=== PATIENT | female | born 1985 | race Caucasian/White ===

== ENCOUNTER 2019-01-15 19:25 | Observation (INO) ==
[2019-01-15] MEDS ORDERED: Ipratropium/Albuterol Neb 3 ML IH ONE (19:27)
[2019-01-15] MEDS ORDERED: Albuterol 2.5 MG/3 ML NEBULIZER IH ONE (19:27)
[2019-01-15] MEDS ORDERED: 0.9 % Sodium Chloride 1,000 ML IVC ONE ×2 (19:27→21:42)
--- NOTE | 2019-01-15 19:27 | Emergency Department Note ---
Disposition Clinical Impression: Viral infection, Upper respiratory infection, Asthma exacerbation Disposition: Admitted As Inpatient Condition: Good Referrals: Janak Youssef, MAGAZINE SUPERVISOR [Primary Care Provider] - Forms: ED Satisfaction Letter Time of Disposition: 22:25 URI/Sore Throat HPI - General Chief Complaint: ED Upper Respiratory Infection Stated Complaint: COUGH Time Seen by Provider: 01/15/19 19:26 Source: patient Mode of arrival: ambulatory Limitations: no limitations Nursing Notes Reviewed: Yes Vital Signs Reviewed: Yes - History of Present Illness HPI Narrative: 31-year-old female who presents today from urgent care with shortness of breath. She has been treated on there for about 3 weeks according to the urgent care physician on back with steroids and azithromycin and breathing treatments. She is a known asthmatic. She did not getting any better infected issues or tachypnea can a little worse and so he wanted her to come appear to be further evaluated. He is concerned that she may have a blood clot. She has never had a blood clot before. She does have a history of asthma. - Related Data Home Medications Medication Instructions Recorded Confirmed FLUoxetine HCl [PROzac] 60 mg PO DAILY 02/26/16 01/15/19 Topiramate [Topamax] 50 mg PO BID 09/13/17 01/15/19 Hydrochlorothiazide [Microzide] 12.5 mg PO DAILY 06/30/18 01/15/19 Albuterol Neb [Proventil Neb] 2.5 mg IH Q4HR 12/19/18 01/15/19 Previous Rx's Medication Instructions Recorded Albuterol Sulfate [Ventolin Hfa] 1 - 2 spray IH Q4H PRN #1 08/30/18 hfa.aer.ad Dicyclomine [Bentyl] 10 mg PO QID PRN #15 capsule 12/04/18 Montelukast [Singulair] 10 mg PO DAILY #30 tablet 01/08/19 Allergies Allergy/AdvReac Type Severity Reaction Status Date / Time Amoxicillin Allergy Difficulty Verified 01/15/19 18:32 Breathing Penicillins Allergy Difficulty Verified 01/15/19 18:32 Breathing all cillins Allergy Difficulty Uncoded 01/15/19 18:32 Breathing Review of Systems: All other systems are negative except as noted/marked Chart generated with voice recognition software Nursing notes reviewed Old records reviewed URI PMH - Past Medical History Medical history: Reports: asthma, hypertension Surgical history: Reports: cholecystectomy Psychiatric history: Reports: anxiety, depression IRON CASTER history: Reports: bilateral tubal ligation Family history: Reports: non-contributory - Social History Smoking Status: Current every day smoker Alcohol use: Reports: none Drug use: Reports: none Physical Exam - General Limitations: no limitations General appearance: alert, anxious, in distress, obese - Head Head exam: atraumatic, normocephalic, normal inspection - Eye Eye exam: Present: normal appearance, PERRL, EOMI - ENT ENT exam: normal exam, normal oropharynx, mucous membranes moist - Neck Neck exam: Present: normal inspection, full ROM, trachea midline - Chest Chest inspection: Present: normal inspection, symmetric chest wall rise. Absent: tenderness, abscess - Respiratory Respiratory exam: Present: normal lung sounds bilaterally, respiratory distress, wheezes, accessory muscle use - Cardiovascular Cardiovascular exam: Present: normal rhythm, tachycardia, normal heart sounds - Abdominal Exam Abdominal exam: Present: soft, Non-Tender, normal bowel sounds - Extremities Exam Extremities exam: Present: normal inspection, full ROM. Absent: tenderness, pedal edema - Back Exam Back exam: Present: normal inspection, full ROM. Absent: tenderness - Neurological Exam Neurological exam: Present: alert, oriented X3, CN II-XII intact - Psychiatric Psychiatric exam: Present: normal affect, normal mood - Skin Skin exam: Present: warm, dry, intact, normal color Course Vital Signs Temperature 97.5 F L 01/15/19 19:26 Pulse Rate 117 01/15/19 19:26 Respiratory Rate 18 01/15/19 19:26 Blood Pressure 134/75 01/15/19 19:26 O2 Sat by Pulse Oximetry 97 01/15/19 19:26 Temperature 97.5 F L 01/15/19 19:26 Pulse Rate 104 01/15/19 22:04 Respiratory Rate 16 01/15/19 22:04 Blood Pressure 122/60 01/15/19 22:04 O2 Sat by Pulse Oximetry 96 01/15/19 22:04 Oxygen Delivery Oxygen Delivery Nasal Cannula Upper Respiratory Infection - MDM Narrative Medical decision making narrative: 33-year-old female who presents today your symptoms or shortness of breath cough congestion for an ongoing for 3 weeks. She does appear today to rule out a blood clot. CT does not show any evidence of any large blood clots. Patient continues to have a copious amount of sinus drainage and states that on reevaluation that she feels that her throat closing off the last 2 weeks and no one's done a strep test on her. We did get a strep test after she mentioned that to me. She did not mention to me on arrival. Her wheezing has improved after the DuoNeb she remains tachycardic and a sat of 94% on room air. I do think this is probably an asthmatic/upper viral respiratory tract tract infec tion. I do think she would probably benefit from overnight stay and I will discuss this with her. I spoke with Dr. Fung who agreed to accept the patient overnight for observation. Patient's comfortable with staying. We started on some Levaquin as she has bounced that the azithromycin as an outpatient and is allergic to penicillin. - Medical Records Medical records reviewed: Yes I reviewed the patient's medical records. - Lab Data Lab results reviewed: Yes I reviewed the patient's lab results. Result diagrams: 01/15/19 19:58 01/15/19 19:58 Lab Results 01/15/19 01/15/19 01/15/19 Range/Units 19:58 19:58 19:58 WBC 21.7 H (4.3-11.1) K/mcL RBC 4.34 (3.82-4.97) M/mcL Hgb 12.6 (11.5-15.4) g/dL Hct 38.5 (35.3-44.9) % MCV 88.7 (83.0-100.0) fL MCH 29.0 (28.0-33.3) pg MCHC 32.7 (31.6-35.5) g/dL RDW 13.0 (11.5-14.5) % Plt Count 300 (140-400) K/mcL MPV 10.4 (9.4-12.4) fL Immature Gran % 1.0 (0-4) % Seg Neutrophils % 68.4 % Lymphocytes % 21.9 % Monocytes % 6.3 % Eosinophils % 1.9 % Basophils % 0.5 % Neutrophils # 14.8 H (1.6-8.9) K/mcL Lymphocytes # 4.8 H (0.6-4.6) K/mcL Monocytes # 1.4 H (0.0-1.3) K/mcL Eosinophils # 0.4 (0.0-0.6) K/mcL Basophils # 0.1 (0.0-0.2) K/mcL PT 11.6 (9.4-12.1) Seconds INR 1.0 APTT 32.4 (26.0-36.0) Seconds Sodium 133 L (136-145) mEq/L Potassium 3.9 (3.5-5.1) mEq/L Chloride 99 (98-107) mEq/L Carbon Dioxide 24 (23-29) mEq/L BUN 13 (6-20) mg/dL Creatinine 0.59 L (0.60-1.20) mg/dL Est GFR ( Amer) > 60 (> 60) Est GFR (Non-Af Amer) > 60 (> 60) BUN/Creatinine Ratio 22 (6-26) Glucose 128 H (70-105) mg/dL Calculated Osmolality 278 L (280-300) Calcium 9.1 (8.6-10.3) mg/dL Magnesium 1.9 (1.6-2.6) mg/dL - Radiology Data Radiology results reviewed: Yes I reviewed the patient's radiology results. EXAMINATION: CTA OF THE CHEST 01/15/2019 9:08 pm TECHNIQUE: CTA of the chest was performed after the administration of intravenous contrast. Multiplanar reformatted images are provided for review. MIP images are provided for review. Dose modulation, iterative reconstruction, and/or weight based adjustment of the mA/kV was utilized to reduce the radiation dose to as low as reasonably achievable. COMPARISON: Chest x-ray 01/07/2013, 06/29/2013 CT chest HISTORY: ORDERING SYSTEM PROVIDED HISTORY: sob, tachycardia r/o pe 75 ml of ISOVUE 370 Shortness of breath, tachycardia. Acute symptoms. Initial study. FINDINGS: Pulmonary Arteries: Motion artifact degrades some of the images. No central or lobar pulmonary emboli are seen. Many of the segmental and subsegmental pulmonary artery supplying the lower lobes are obscured by motion artifact. The central pulmonary arteries are normal in caliber and course. Mediastinum: No evidence of mediastinal lymphadenopathy. The heart and pericardium demonstrate no acute abnormality. There is no acute abnormality of the thoracic aorta. Lungs/pleura: The central airways are patent. Minimal bibasilar bandlike opacity is suggestive of atelectasis or scarring. Upper Abdomen: The attenuation of the liver is diffusely decreased compatible with fatty infiltration. Soft Tissues/Bones: No acute or focal bony abnormality. CT/CT angio chest IMPRESSION: The study is limited by motion artifact. No central or lobar pulmonary emboli are identified. Many of the segmental and subsegmental pulmonary arteries particularly of the lung bases, are not evaluated, obscured. D/ / Aylin Marcus Cha, MD / Aylin Marcus Cha, MD Interpreting Provider: Aylin Marcus Cha, MD - EKG Data EKG attestation: Yes I reviewed and interpreted this EKG. EKG results narrative: EKG interpreted by myself as sinus tachycardia at a rate of 111 a QTC of [address] elevation
[2019-01-15] MEDS ORDERED: Isovue-370 500 ML BOTTLE IVP ONE (20:05)
[2019-01-15 20:07] LABS: Basophils # 0.1 K/mcL (0.0-0.2); Basophils % 0.5 %; Eosinophils # 0.4 K/mcL (0.0-0.6); Eosinophils % 1.9 %; Hematocrit 38.5 % (35.3-44.9); Hemoglobin 12.6 g/dL (11.5-15.4); Lymphocytes # 4.8 K/mcL (0.6-4.6); Lymphocytes % 21.9 %; Mean Corpuscular HGB Conc 32.7 g/dL (31.6-35.5); Mean Corpuscular Volume 88.7 fL (83.0-100.0); Mean Platelet Volume 10.4 fL (9.4-12.4); Monocytes # 1.4 K/mcL (0.0-1.3); Monocytes % 6.3 %; Platelet Count 300 K/mcL (140-400); Red Blood Count 4.34 M/mcL (3.82-4.97); Segmented Neutrophils % 68.4 %
[2019-01-15 20:08] LABS: Neutrophils # 14.8 K/mcL (1.6-8.9)
[2019-01-15 20:14] LABS: Prothrombin Time 11.6 Seconds (9.4-12.1)
[2019-01-15 20:17] LABS: Activated Partial Thrombo Time 32.4 Seconds (26.0-36.0)
[2019-01-15 20:25] LABS: BUN/Creatinine Ratio 22 (6-26); Blood Urea Nitrogen 13 mg/dL (6-20); Calcium 9.1 mg/dL (8.6-10.3); Carbon Dioxide 24 mEq/L (23-29); Chloride 99 mEq/L (98-107); Glucose 128 mg/dL (70-105); Magnesium 1.9 mg/dL (1.6-2.6); Osmolality,Calculated 278 (280-300); Potassium 3.9 mEq/L (3.5-5.1); Sodium 133 mEq/L (136-145); eGFR For Non-African Americans > 60 (> 60)
[2019-01-15] MEDS ORDERED: Levofloxacin 750 MG/150 ML 750 MG/150 ML BAG IVPB ONE (21:47)
[2019-01-15] MEDS ORDERED: Ipratropium/Albuterol Neb 3 ML IH PRN (23:12)
[2019-01-15] MEDS ORDERED: Ketorolac 30 MG/ML VIAL IVP PRN (23:12)
[2019-01-15] MEDS ORDERED: Naloxone 0.4 MG/ML INJ IVP PRN (23:12)
[2019-01-15] MEDS ORDERED: Mag Hydrox/Al Hydrox/Simeth 30 ML UDC PO PRN (23:12)
[2019-01-15] MEDS ORDERED: Ondansetron 4 MG/2 ML VIAL IVP PRN (23:12)
[2019-01-15] MEDS ORDERED: MOM Conc 10 ML UD.LIQ PO PRN (23:12)
[2019-01-15] MEDS ORDERED: Acetaminophen 325 MG TABLET PO PRN (23:12)
[2019-01-15] MEDS ORDERED: *HR* HYDROcodone/Acet 5/325 mg TABLET PO PRN (23:12)
[2019-01-15] MEDS ORDERED: Nicotine 21 MG PATCH.TD24 TD SCH (23:15)
[2019-01-15] MEDS: 0.9 % Sodium Chloride 1,000 ML IVC SCH (23:30)
[2019-01-16] MEDS: Albuterol 2.5 MG/3 ML NEBULIZER IH SCH ×4 (00:17→12:56)
[2019-01-16 01:25] LABS: Bilirubin,Urine Negative (Negative); Blood,Urine Trace-intact (Negative); Clarity,Urine Slightly Cloudy (Clear); Color,Urine Yellow (Yellow); Glucose,Urine (UA) 500 mg/dL (Normal); Ketones,Urine 15 mg/dL (Negative); Leukocyte Esterase,Urine Negative (Negative); Nitrite,Urine Negative (Negative); PH,Urine 5.5 pH Units (5.0-8.0); Protein,Urine Negative (Neg-Trace); Urobilinogen,Urine Normal (Normal)
[2019-01-16 01:41] LABS: Bacteria,Urine Few per hpf (None-Few); RBC,Urine 0-3 per hpf (0-3); Squamous Epithelial Cell,Urine Few per lpf (None-Few); WBC,Urine 0-3 per hpf (0-3)
[2019-01-16 07:03] LABS: Basophils # 0.1 K/mcL (0.0-0.2); Basophils % 0.2 %; Hematocrit 37.3 % (35.3-44.9); Hemoglobin 12.2 g/dL (11.5-15.4); Immature Granulocytes % 1.4 % (0-4); Lymphocytes # 1.9 K/mcL (0.6-4.6); Lymphocytes % 8.1 %; Mean Corpuscular HGB Conc 32.7 g/dL (31.6-35.5); Mean Corpuscular Hemoglobin 29.4 pg (28.0-33.3); Mean Corpuscular Volume 89.9 fL (83.0-100.0); Monocytes # 0.6 K/mcL (0.0-1.3); Monocytes % 2.6 %; Neutrophils # 20.2 K/mcL (1.6-8.9); Platelet Count 298 K/mcL (140-400); Red Blood Count 4.15 M/mcL (3.82-4.97); Red Cell Distribution Width 13.1 % (11.5-14.5); Segmented Neutrophils % 87.7 %
[2019-01-16 07:27] LABS: BUN/Creatinine Ratio 23 (6-26); Blood Urea Nitrogen 13 mg/dL (6-20); Calcium 8.8 mg/dL (8.6-10.3); Carbon Dioxide 20 mEq/L (23-29); Chloride 102 mEq/L (98-107); Glucose 235 mg/dL (70-105); Magnesium 2.3 mg/dL (1.6-2.6); Osmolality,Calculated 280 (280-300); Potassium 4.4 mEq/L (3.5-5.1); Sodium 131 mEq/L (136-145); eGFR For Non-African Americans > 60 (> 60)
[2019-01-16] MEDS: 0.9 % Sodium Chloride 1,000 ML IVC SCH (07:56)
[2019-01-16] MEDS ORDERED: Topiramate 25 MG TABLET PO SCH (09:00)
[2019-01-16] MEDS ORDERED: hydroCHLOROthiazide 25 MG TABLET PO SCH (09:00)
[2019-01-16] MEDS ORDERED: FLUoxetine 20 MG CAPSULE PO SCH (09:00)
[2019-01-16 11:46] VITALS: BP 116/77
--- NOTE | 2019-01-16 12:26 | Internal Med History&Physical ---
Date of Encounter: 01/16/19 Time of Encounter: 11:45 Assessment and Plan (1) Upper respiratory infection Current visit: Yes Status: Acute Likely viral. She is clinically improved and feels stable for discharge home. Room air oximetry will be checked on 6 minute walk prior to discharge. She will receive 3 day course of doxycycline and probiotic. Qualifiers: URI type: unspecified URI Qualified Code(s): J06.9 - Acute upper respiratory infection, unspecified (2) Hypertension Current visit: Yes Status: Chronic Continue HCTZ. Qualifiers: Hypertension type: essential hypertension Qualified Code(s): I10 - Essential (primary) hypertension (3) Leukocytosis Current visit: No Status: Chronic Present on all labs since 2015. Qualifiers: Leukocytosis type: unspecified Qualified Code(s): D72.829 - Elevated white blood cell count, unspecified Internal Medicine - H&P: HPI Chief complaint: Cough and dyspnea History of present illness: Ms. Newell is a 34 year old female who came to emergency room stating she had onset of cough and dyspnea proximal for 2 weeks ago. She states the cough is minimally productive. She has had fevers chills and sore throat. She denies vomiting or diarrhea. She reports a close contact had similar symptoms. She was evaluated emergency room was felt to have viral infection with exacerbation of asthma. She was admitted to [facility] floor for ongoing care needs. She states she feels improved at the present time. Her respiratory history is significant for having smoked since age 17 up to 2 packs per day. She has not had PFTs and does not use home oxygen. She has not been tested for sleep apnea. Past Med Surg Social Fam HX - Past Medical History Medical history: asthma, hypertension Additional medical history: tachycardia Psychiatric history: anxiety, depression - Past Surgical History Surgical History: cholecystectomy Additional surgical history: tubal ligation - Social History Smoking Status: Current every day smoker Smokeless Tobacco Status: No Alcohol use: none Drug use: none Internal Medicine - H&P: Meds FLUoxetine HCl [PROzac] 60 mg PO DAILY 02/26/16 [History] Topiramate [Topamax] 50 mg PO BID 09/13/17 [History] Hydrochlorothiazide [Microzide] 12.5 mg PO DAILY 06/30/18 [History] Albuterol Sulfate [Ventolin Hfa] 1 - 2 spray IH Q4H PRN #1 hfa.aer.ad 08/30/18 [Rx] Dicyclomine [Bentyl] 10 mg PO QID PRN #15 capsule 12/04/18 [Rx] Albuterol Neb [Proventil Neb] 2.5 mg IH Q4HR 12/19/18 [History] Montelukast [Singulair] 10 mg PO DAILY #30 tablet 01/08/19 [Rx] Allergy/AdvReac Type Severity Reaction Status Date / Time Amoxicillin Allergy Difficulty Verified 01/15/19 18:32 Breathing Penicillins Allergy Difficulty Verified 01/15/19 18:32 Breathing all cillins Allergy Difficulty Uncoded 01/15/19 18:32 Breathing All Systems PM: A 10-system review of systems was performed and is negative for pertinent findings except as documented above in the HPI. Review of systems: Gen.: She states her weight has increased approximately 100 pounds in the past year, unintentionally Cardiovascular: She has history of hypertension but denies [place] heart failure DVT or pulmonary embolus. She states she occasionally gets chest discomfort on exertion. Respiratory: As per history of present illness GI: She has NAFLD. She has had cholecystectomy. She reports hemorrhoids. She denies disorders of her exocrine pancreas. : She denies hematuria dysuria or kidney stones Neurologic: She reports a diagnosis of seizures but does not know what type. She reports seeing a neurologist initially and was placed on Topamax. She reports her last seizure was approximately 2 weeks ago. She denies strokes. Endocrine: She thinks she has upper lipidemia. She denies diabetes or known thyroid disease. Hematology/oncology: She denies blood disorders cancers or anemia Psychiatric: She has anxiety and bipolar disorder. [place] skeletal: She has DJD but denies gout or other bone joint or muscle disorders. - Constitutional Vitals: Temp Pulse Resp BP Pulse Ox 97.4 F L 99 18 116/77 95 01/16/19 11:44 01/16/19 11:44 01/16/19 11:44 01/16/19 11:44 01/16/19 11:44 Exam: Gen.: She is a well-developed obese female sitting on the side of bed who appears in no acute distress HEENT: Head is atraumatic and normocephalic. Eyes: EOMI. There is no scleral icterus. Mouth: Mucosa is moist. Neck: There is no thyromegaly or adenopathy noted. Lungs: Clear to auscultation all gonzalez. No wheezing is heard. Abdomen: She has a large abdomen. It is nontender to palpation. Extremities: There is no cyanosis edema or clubbing noted. Dorsalis pedis and posterior tibial pulses are trace palpable bilaterally. Neurologic: Mental status: She is talkative and a good historian. Cranial nerves: Smile is symmetric. Forehead wrinkles bilaterally. Tongue protrudes midline. EOMI. Motor: There is no pronator drift. Cerebellar: Finger to nose is intact bilaterally. Skin: Warm and dry Internal Med - H&P Results - Labs CBC & Chem 7: 01/16/19 06:36 01/16/19 06:36 Labs: Short CBC 01/15/19 01/16/19 Range/Units 19:58 06:36 WBC 21.7 H 23.0 H (4.3-11.1) K/mcL Hgb 12.6 12.2 (11.5-15.4) g/dL Hct 38.5 37.3 (35.3-44.9) % Plt Count 300 298 (140-400) K/mcL Neutrophils # 14.8 H 20.2 H (1.6-8.9) K/mcL BMP 01/15/19 01/16/19 19:58 06:36 Sodium 133 L 131 L Potassium 3.9 4.4 Chloride 99 102 Carbon Dioxide 24 20 L BUN 13 13 Creatinine 0.59 L 0.57 L Glucose 128 H 235 H Calcium 9.1 8.8 Urine 01/15/19 Range/Units 01:09 Urine Color Yellow (Yellow) Urine Clarity Slightly Cloudy A (Clear) Urine pH 5.5 (5.0-8.0) pH Units Ur Specific [place] 1.020 (1.010-1.025) Urine Protein Negative (Neg-Trace) mg/dL Urine Glucose (UA) 500 H (Normal) mg/dL - Impressions ITS Impressions Chest CTA 01/15/19 20:05 IMPRESSION: The study is limited by motion artifact. No central or lobar pulmonary emboli are identified. Many of the segmental and subsegmental pulmonary arteries particularly of the lung bases, are not evaluated, obscured. D/ / Aylin Marcus Cha, MD / Aylin Marcus Cha, MD Interpreting Provider: Aylin Marcus Cha, MD
--- NOTE | 2019-01-16 12:39 | Discharge Summary ---
Orders not resulted at time of discharge: Pending orders 01/15/19 19:48 Culture,Blood [] Stat Date of Encounter: 01/16/19 Time of Encounter: 11:45 - Discharge Diagnosis (1) Upper respiratory infection Priority: Primary Status: Acute Qualifiers: URI type: unspecified URI Qualified Code(s): J06.9 - Acute upper respiratory infection, unspecified (2) Hypertension Priority: Secondary Status: Chronic Qualifiers: Hypertension type: essential hypertension Qualified Code(s): I10 - Essential (primary) hypertension (3) Leukocytosis Priority: Secondary Status: Chronic Qualifiers: Leukocytosis type: unspecified Qualified Code(s): D72.829 - Elevated white blood cell count, unspecified Hospital course: Ms. Newell is a 34 year old female who came to emergency room stating she had onset of cough and dyspnea proximal for 2 weeks ago. She states the cough is minimally productive. She has had fevers chills and sore throat. She denies vomiting or diarrhea. She reports a close contact had similar symptoms. She was evaluated emergency room was felt to have viral infection with exacerbation of asthma. She was admitted to [facility] for ongoing care needs. Initial orders were written by the emergency room physician. I saw her on January 16 and performed a history physical and discharge. By the time I saw her she felt improved and stable for discharge home. She will be given doxycycline and probiotic for 3 days at discharge. Room air oximetry will be checked on 6 min milka walk prior to discharge. I encouraged her to become a nonsmoker. She will follow with her PCP Janak Youssef CNP within 1 week. - Time Spent with Patient Total time spent providing and/or coordinating discharge services: - Discharge Medications Prescriptions: New Doxycycline 100 mg PO BID #6 capsule Lactobacillus [Culturelle] 1 each PO BID #6 cap.sprink Continue Albuterol Sulfate [Ventolin Hfa] 1 - 2 spray IH Q4H PRN #1 hfa.aer.ad PRN Reason: Congestion Dicyclomine [Bentyl] 10 mg PO QID PRN #15 capsule PRN Reason: abdominal pain Montelukast [Singulair] 10 mg PO DAILY #30 tablet FLUoxetine HCl [Prozac] 60 mg PO DAILY Topiramate [Topamax] 50 mg PO BID Hydrochlorothiazide [Microzide] 12.5 mg PO DAILY Albuterol Neb [Proventil Neb] 2.5 mg IH Q4HR Home Medications: FLUoxetine HCl [Prozac] 60 mg PO DAILY 02/26/16 [History] Topiramate [Topamax] 50 mg PO BID 09/13/17 [History] Hydrochlorothiazide [Microzide] 12.5 mg PO DAILY 06/30/18 [History] Albuterol Sulfate [Ventolin Hfa] 1 - 2 spray IH Q4H PRN #1 hfa.aer.ad 08/30/18 [Rx] Dicyclomine [Bentyl] 10 mg PO QID PRN #15 capsule 12/04/18 [Rx] Albuterol Neb [Proventil Neb] 2.5 mg IH Q4HR 12/19/18 [History] Montelukast [Singulair] 10 mg PO DAILY #30 tablet 01/08/19 [Rx] Doxycycline 100 mg PO BID #6 capsule 01/16/19 [Rx] Lactobacillus [Culturelle] 1 each PO BID #6 cap.sprink 01/16/19 [Rx] Allergies/Adverse Reactions: Allergy/AdvReac Type Severity Reaction Status Date / Time Amoxicillin Allergy Difficulty Verified 01/15/19 18:32 Breathing Penicillins Allergy Difficulty Verified 01/15/19 18:32 Breathing all cillins Allergy Difficulty Uncoded 01/15/19 18:32 Breathing Date of admission: 01/15/19 22:33 Primary care physician: Janak Youssef CNP - Constitutional Vitals: Temp Pulse Resp BP Pulse Ox 97.4 F L 99 18 116/77 95 01/16/19 11:44 01/16/19 11:44 01/16/19 11:44 01/16/19 11:44 01/16/19 11:44 - Patient Status Disposition: Home, Self-Care Condition: Good - Discharge Instructions Follow Up With: Janak Youssef CNP [Primary Care Provider] - 1 week - Diet and Activity Activity: resume usual activities as tolerated
--- NOTE | 2019-01-16 16:36 | Electrocardiograph Report ---
[place] [id number] Test Date: 2019-01-15 Pat Name: Chastity Newell Department: EDP-16 Room: [facility] Gender: F [employer] Operator Helper: : 1985 Requested By: Destiny Del Cid Order Number: [id number] Reading MD: Michelle Louie Measurements Intervals [place] Rate: 111 P: 16 RI: 125 QRS: 45 QRSD: 71 T: 34 QT: 356 QTc: 484 Interpretive Statements Sinus tachycardia Abnormal R-wave progression, early transition Baseline wander Electronically Signed On 01-16-2019 16:35:14 EDT by Michelle Louie
== END 2019-01-16 13:47 | disposition home or self-care (01) ==
LOC: INPPIK 19:25 → EMEROOPIK 19:25 → INPPIK 22:45
PROVIDERS: ADMIT Internal Medicine; ATTEND Internal Medicine

== ENCOUNTER 2022-03-20 11:30 | Observation (INO) ==
[2022-03-20] MEDS ORDERED: Ondansetron 4 MG/2 ML VIAL IVP ONE (12:05)
[2022-03-20] MEDS ORDERED: Ketorolac 30 MG/ML VIAL IVP ONE (12:05)
[2022-03-20] MEDS ORDERED: 0.9 % Sodium Chloride 1,000 ML IV ONE (12:05)
[2022-03-20 12:17] LABS: Bilirubin,Urine Negative (Negative); Blood,Urine Trace-intact (Negative); Clarity,Urine Clear (Clear); Color,Urine Yellow (Yellow); Glucose,Urine (UA) >=1000 mg/dL (Normal); Ketones,Urine 15 mg/dL (Negative); Leukocyte Esterase,Urine Negative (Negative); Nitrite,Urine Negative (Negative); PH,Urine 6.5 pH Units (5.0-8.0); Protein,Urine 30 mg/dL (Neg-Trace); Specific Gravity,Urine 1.015 (1.010-1.025); Urobilinogen,Urine Normal (Normal)
[2022-03-20 12:22] LABS: Hematocrit 43.9 % (35.3-44.9); Hemoglobin 14.2 g/dL (11.5-15.4); Mean Corpuscular HGB Conc 32.3 g/dL (31.6-35.5); Mean Corpuscular Volume 86.6 fL (83.0-100.0); Mean Platelet Volume 11.8 fL (9.4-12.4); Platelet Count 333 K/mcL (140-400); Red Blood Count 5.07 M/mcL (3.82-4.97); Red Cell Distribution Width 12.5 % (11.5-14.5); White Blood Count 21.2 K/mcL (4.3-11.1)
[2022-03-20 12:25] LABS: Bacteria,Urine Few per hpf (None-Few); Budding Yeast,Urine Few per hpf (None Seen); Mucus,Urine Few per lpf (None-Few); RBC,Urine 0-3 per hpf (0-3)
[2022-03-20 12:27] LABS: VBG HCO3 24 mEq/L (21-27); VBG PCO2 40 mmHg (41-51); VBG PH 7.39 pH Units (7.32-7.42); VBG PO2 58 mmHg (25-50)
[2022-03-20 12:40] LABS: Lymphocytes # 5.9 K/mcL (0.6-4.6); Monocytes # 0.4 K/mcL (0.0-1.3); Neutrophils # 14.8 K/mcL (1.6-8.9)
[2022-03-20 12:43] LABS: Alanine Aminotransferase 18 Units/L (7-52); Albumin/Globulin Ratio 1.2 (1.1-2.2); Alkaline Phosphatase 110 Units/L (34-104); Amylase 24 Units/L (29-103); Aspartate Amino Transferase 16 Units/L (13-39); BUN/Creatinine Ratio 16 (6-26); Bilirubin,Total 0.5 mg/dL (0.3-1.0); Blood Urea Nitrogen 9 mg/dL (6-20); Calcium 9.3 mg/dL (8.6-10.3); Carbon Dioxide 25 mEq/L (23-29); Chloride 99 mEq/L (98-107); Globulin 3.4 g/dL (2.4-3.5); Glucose 324 mg/dL (70-105); Osmolality,Calculated 287 (280-300); Potassium 4.3 mEq/L (3.5-5.1); Sodium 133 mEq/L (136-145); Total Protein 7.4 g/dL (6.4-8.9); eGFR For African Americans > 60 (> 60); eGFR For Non-African Americans > 60 (> 60)
[2022-03-20] MEDS ORDERED: levoFLOXacin 750 MG/150 ML 750 MG/150 ML BAG IVPB STA (12:46)
[2022-03-20] MEDS ORDERED: Fluconazole 150 MG TABLET PO ONE (13:38)
[2022-03-20] MEDS ORDERED: Naloxone 0.4 MG/ML INJ IVP PRN (13:39)
[2022-03-20] MEDS ORDERED: *HR* Dextrose 50 % in Water (Syg) 50 ML SYRINGE IVP PRN (13:39)
[2022-03-20] MEDS ORDERED: Ondansetron 4 MG/2 ML VIAL IVP PRN (13:39)
[2022-03-20] MEDS ORDERED: Acetaminophen 325 MG TABLET PO PRN (13:39)
[2022-03-20] MEDS ORDERED: Dextrose 4 GM Chewable Tablets PO PRN ×2 (13:39)
[2022-03-20] MEDS ORDERED: D5% in Water 1,000 ML IVC PRN (13:39)
[2022-03-20] MEDS ORDERED: Ipratropium/Albuterol Neb 3 ML IH PRN (13:42)
[2022-03-20] MEDS: Insulin LISPRO 300 UNITS/3 ML VIAL SUBQ SCH ×2 (15:35→17:22)
[2022-03-20] MEDS ORDERED: risperiDONE 1 MG TABLET PO SCH (21:00)
[2022-03-20 21:36] LABS: Estimated Average Glucose 309 mg/dl; Hemoglobin A1C 12.4 %
[2022-03-20] MEDS: Budesonide/Formoterol 160/4.5 1 PUFF INH IH SCH (21:56)
[2022-03-21 07:14] VITALS: BP 124/82; PULSE 80; TEMP 97.8
[2022-03-21] MEDS: Insulin LISPRO 300 UNITS/3 ML VIAL SUBQ SCH ×2 (07:56→11:48)
[2022-03-21] MEDS ORDERED: *HR* Metformin 500 MG TABLET PO SCH (08:00)
[2022-03-21 08:15] LABS: Basophils # 0.1 K/mcL (0.0-0.2); Basophils % 0.6 %; Eosinophils # 0.4 K/mcL (0.0-0.6); Eosinophils % 2.3 %; Hematocrit 41.5 % (35.3-44.9); Hemoglobin 13.2 g/dL (11.5-15.4); Immature Granulocytes % 0.6 % (0-4); Lymphocytes # 2.9 K/mcL (0.6-4.6); Mean Corpuscular HGB Conc 31.8 g/dL (31.6-35.5); Mean Corpuscular Hemoglobin 27.9 pg (28.0-33.3); Mean Corpuscular Volume 87.7 fL (83.0-100.0); Mean Platelet Volume 11.5 fL (9.4-12.4); Monocytes # 1.2 K/mcL (0.0-1.3); Monocytes % 6.5 %; Neutrophils # 13.3 K/mcL (1.6-8.9); Platelet Count 267 K/mcL (140-400); Red Blood Count 4.73 M/mcL (3.82-4.97); Red Cell Distribution Width 12.6 % (11.5-14.5)
[2022-03-21 08:32] LABS: BUN/Creatinine Ratio 20 (6-26); Blood Urea Nitrogen 10 mg/dL (6-20); Calcium 8.8 mg/dL (8.6-10.3); Carbon Dioxide 27 mEq/L (23-29); Chloride 98 mEq/L (98-107); Glucose 311 mg/dL (70-105); Magnesium 1.7 mg/dL (1.6-2.6); Osmolality,Calculated 287 (280-300); Potassium 4.3 mEq/L (3.5-5.1); Sodium 133 mEq/L (136-145); eGFR For African Americans > 60 (> 60); eGFR For Non-African Americans > 60 (> 60)
[2022-03-21] MEDS ORDERED: GlipiZIDE 5 MG TABLET PO SCH (08:36)
[2022-03-21] MEDS: Budesonide/Formoterol 160/4.5 1 PUFF INH IH SCH (08:42)
[2022-03-21 08:44] VITALS: RESP 18; O2SAT 96
[2022-03-21] MEDS ORDERED: Topiramate 25 MG TABLET PO SCH (09:00)
[2022-03-21] MEDS ORDERED: FLUoxetine 20 MG CAPSULE PO SCH (09:00)
[2022-03-21] MEDS ORDERED: atenoloL 50 MG TABLET PO SCH (09:00)
[2022-03-21] MEDS ORDERED: Famotidine 20 MG TABLET PO SCH (09:00)
[2022-03-21] MEDS ORDERED: Tiotropium 10 INH DOSE IH SCH (10:00)
== END 2022-03-21 13:50 | disposition home or self-care (01) ==
LOC: INPPIK 11:30 → EMEROOPIK 11:30 → INPPIK 14:20
PROVIDERS: ADMIT Internal Medicine; ATTEND Internal Medicine